=== PATIENT | male | born 1950 | race Caucasian/White ===

== ENCOUNTER → 2017-07-10 | Outpatient (CLI) | payer MEDICARE, OTHER ==
[~2017-07-10] MED LIST: /ONDA4TA PO; LOVE1INJ SC; OXYC-274 PO; PERC5TAB PO; SENO8.6T9 PO; SIMV40TA2 PO; VENTAER IN
--- NOTE | 2017-07-10 12:12 | REP ---
Chest two views HISTORY: Acute bronchitis Comparison: 06/12/2016 The lungs are hyperinflated. An increase in interstitial markings is present in the lungs. Bullae are present in the upper lobes. The heart is normal in size. The pulmonary vasculature is normal in appearance. The bony structure is intact. IMPRESSION: Findings consistent with COPD. Signed by Wes Corona MD 07/10/2017 12:04 P
== END ==
LOC: M WUC 11:42
PROVIDERS: ATTEND Nurse Practitioner Adult Health
DX: J20.9 Acute bronchitis, unspecified (principal)

== ENCOUNTER → 2017-11-11 | Outpatient (CLI) | payer MEDICARE, OTHER | LOC: M WUC 08:26 | DX: Z01.818 Encounter for other preprocedural examination (principal); J44.9 Chronic obstructive pulmonary disease, unspecified | CPT/HCPCS: 71046 ==

== ENCOUNTER 2017-11-24 05:48 | Day surgery (SDC) | payer MEDICARE, OTHER ==
[2017-11-24 06:33] LABS: POTASSIUM SERUM 4.2 MEQ/L (3.5-5.1)
[2017-11-24] MEDS: LR 1,000 ML IV ×2 (06:50)
[2017-11-24] MEDS ORDERED: ONDANSETRON 4MG/2ML VIAL (J2405) As Ordered ×2 (07:15)
[2017-11-24] MEDS ORDERED: ROCURONIUM BROMIDE 50 MG/5 ML VIAL As Ordered ×4 (07:15→08:17)
[2017-11-24] MEDS ORDERED: PROPOFOL 200 MG/20 ML VIAL As Ordered ×2 (07:15)
[2017-11-24] MEDS ORDERED: METOCLOPRAMIDE INJ 10MG/2ML VIAL (J2765) As Ordered ×2 (07:15)
[2017-11-24] MEDS ORDERED: LIDOCAINE 2% INJ 100 MG/5 ML SDV (FOR ANES.) As Ordered ×2 (07:15)
[2017-11-24] MEDS ORDERED: fentaNYL 100 MCG/2 ML INJECTION (J3010) As Ordered ×2 (07:15)
[2017-11-24] MEDS ORDERED: KETOROLAC 60 MG/2 ML VIAL (J1885) As Ordered ×2 (07:15)
[2017-11-24] MEDS ORDERED: MIDAZOLAM INJ 2 MG/2 ML VIAL (J2250) As Ordered ×2 (07:15)
[2017-11-24 07:17] LABS: ALBUMIN 3.1 GM/DL (3.2-5.2); ANION GAP 6 MEQ/L (8-16); BLOOD UREA NITROGEN 18 MG/DL (7-18); CALCIUM LEVEL 8.5 MG/DL (8.8-10.2); CARBON DIOXIDE LEVEL 29 MEQ/L (21-32); CHLORIDE LEVEL 109 MEQ/L (98-107); GLOMERULAR FILTRATION RATE > 60.0 (>49); GLUCOSE, FASTING 100 MG/DL (70-100); PHOSPHORUS LEVEL 2.8 MG/DL (2.5-4.9); SODIUM LEVEL 144 MEQ/L (136-145)
[2017-11-24] MEDS ORDERED: NEOSTIGMINE 10 MG/10 ML VIAL (J2710) As Ordered ×2 (08:54)
[2017-11-24] MEDS ORDERED: GLYCOPYRROLATE INJ 0.2 MG/ML 2 ML VIAL As Ordered ×2 (08:54)
[2017-11-24] MEDS: LIDOCAINE W/EPINEPHRINE 1% 20ML VIAL As Ordered ×2 (09:00)
[2017-11-24] MEDS ORDERED: ALBUTEROL 6.7GM INHALER **FOR ANES. CART/OMNICELL ONLY As Ordered ×2 (09:00)
[2017-11-24] MEDS: BUPIVACAINE HCL 0.25% 30 ML VIAL As Ordered ×2 (09:00)
[2017-11-24] MEDS ORDERED: dexameTHASONE 4 MG/ML 1ML VIAL (J1100) As Ordered ×2 (09:00)
[2017-11-24] MEDS ORDERED: fentaNYL 100 MCG/2 ML INJECTION (J3010) IV ×2 (09:30)
[2017-11-24] MEDS ORDERED: PERCOCET 5MG/325MG TAB PO ×2 (09:30)
[2017-11-24] MEDS ORDERED: LR 1,000 ML IV ×2 (09:30)
[2017-11-24] MEDS ORDERED: ONDANSETRON 4MG/2ML VIAL (J2405) IV ×2 (09:30)
[2017-11-24] MEDS: NORCO, ANEXSIA 5/325MG TABLET (HYDROcodone/ACETAMINOPHEN) PO ×2 (10:13)
== END 2017-11-24 11:46 | disposition home or self-care (01) ==
LOC: M SDC 05:48
DX: K40.90 Unilateral inguinal hernia, without obstruction or gangrene, not specified as recurrent (principal); K21.9 Gastro-esophageal reflux disease without esophagitis; J45.909 Unspecified asthma, uncomplicated; E78.5 Hyperlipidemia, unspecified; Z79.899 Other long term (current) drug therapy; Z87.891 Personal history of nicotine dependence; Z87.81 Personal history of (healed) traumatic fracture
CPT/HCPCS: 49650

== ENCOUNTER 2018-05-31 06:39 | Day surgery (SDC) | payer MEDICARE, OTHER ==
[2018-05-31] MEDS ORDERED: fentaNYL 100 MCG/2 ML INJECTION (J3010) As Ordered (07:01)
[2018-05-31] MEDS ORDERED: MIDAZOLAM INJ 2 MG/2 ML VIAL (J2250) As Ordered (07:02)
[2018-05-31] MEDS ORDERED: ONDANSETRON 4MG/2ML VIAL (J2405) As Ordered (07:02)
[2018-05-31] MEDS: PHENYLEPHRINE 2.5% OPHTH SOL 2ML OS (07:18)
[2018-05-31] MEDS: PROPARACAINE 0.5% OPHTH SOL 15ML OS (07:18)
[2018-05-31] MEDS: TROPICAMIDE 1% OPHTH SOLN 2ML OS (07:18)
[2018-05-31] MEDS: OFLOXACIN 0.3 % (OCUFLOX) OPTH SOL 5ML OS (07:18)
[2018-05-31] MEDS: BALANCED SALT IRRIGATION SOLUTION 500ML BAG (FOR OR EYE MACHINE) As Ordered (08:30)
[2018-05-31] MEDS: POVIDONE-IODINE 5% OPHTH PREP SOL 30ML As Ordered (08:30)
[2018-05-31] MEDS: LIDOCAINE 0.75%/EPINEPHRINE 0.025% IN BSS 1ML SYR INTRACAMERAL (OR ONLY) As Ordered (08:30)
[2018-05-31] MEDS: DUOVISC (0.50ML VISCOAT/0.55ML PROVISC) OPHTH KIT As Ordered (08:31)
[2018-05-31] MEDS: CEFUROXIME 1MG/0.1ML INTRACAMERAL INJ As Ordered ×2 (08:31)
== END 2018-05-31 09:28 | disposition home or self-care (01) ==
LOC: M SDC 06:39
DX: H25.12 Age-related nuclear cataract, left eye (principal); K21.9 Gastro-esophageal reflux disease without esophagitis; J44.9 Chronic obstructive pulmonary disease, unspecified; Z79.899 Other long term (current) drug therapy; Z79.51 Long term (current) use of inhaled steroids
CPT/HCPCS: 66984

== ENCOUNTER 2018-06-07 12:11 | Day surgery (SDC) | payer MEDICARE, OTHER ==
[2018-06-07] MEDS: PROPARACAINE 0.5% OPHTH SOL 15ML OD (13:09)
[2018-06-07] MEDS: TROPICAMIDE 1% OPHTH SOLN 2ML OD (13:09)
[2018-06-07] MEDS: OFLOXACIN 0.3 % (OCUFLOX) OPTH SOL 5ML OD (13:09)
[2018-06-07] MEDS: PHENYLEPHRINE 2.5% OPHTH SOL 2ML OD (13:10)
[2018-06-07] MEDS: POVIDONE-IODINE 5% OPHTH PREP SOL 30ML As Ordered (14:40)
[2018-06-07] MEDS: LIDOCAINE 0.75%/EPINEPHRINE 0.025% IN BSS 1ML SYR INTRACAMERAL (OR ONLY) As Ordered (14:43)
[2018-06-07] MEDS: DUOVISC (0.50ML VISCOAT/0.55ML PROVISC) OPHTH KIT As Ordered (14:43)
[2018-06-07] MEDS: BALANCED SALT IRRIGATION SOLUTION 500ML BAG (FOR OR EYE MACHINE) As Ordered (14:43)
[2018-06-07] MEDS: CEFUROXIME 1MG/0.1ML INTRACAMERAL INJ As Ordered (14:44)
[2018-06-07] MEDS ORDERED: fentaNYL 100 MCG/2 ML INJECTION (J3010) As Ordered (14:50)
[2018-06-07] MEDS ORDERED: MIDAZOLAM INJ 2 MG/2 ML VIAL (J2250) As Ordered (14:50)
== END 2018-06-07 15:30 | disposition home or self-care (01) ==
LOC: M SDC 12:11
DX: H25.11 Age-related nuclear cataract, right eye (principal); K21.9 Gastro-esophageal reflux disease without esophagitis; M54.9 Dorsalgia, unspecified; J45.909 Unspecified asthma, uncomplicated; J44.9 Chronic obstructive pulmonary disease, unspecified; E78.5 Hyperlipidemia, unspecified; J30.9 Allergic rhinitis, unspecified; R06.09 Other forms of dyspnea; Z79.899 Other long term (current) drug therapy; Z87.891 Personal history of nicotine dependence
CPT/HCPCS: 66984

== ENCOUNTER → 2018-07-11 | Outpatient (REF) | payer MEDICARE, OTHER ==
[2018-07-17 00:21] LABS: A1A FOR PHENOTYPE 158 mg/dL (90-200)
== END ==
LOC: M LAB REF 17:08
DX: J44.9 Chronic obstructive pulmonary disease, unspecified (principal)
CPT/HCPCS: 82103

== ENCOUNTER → 2018-07-30 | Outpatient (CLI) | payer MEDICARE, OTHER | LOC: M RAD 07:12 | DX: J44.9 Chronic obstructive pulmonary disease, unspecified (principal); J84.10 Pulmonary fibrosis, unspecified; K76.89 Other specified diseases of liver | CPT/HCPCS: 71250 ==

== ENCOUNTER → 2020-02-26 | Outpatient (CLI) | payer MEDICARE, OTHER ==
[~2020-02-26] MED LIST changes: -/ONDA4TA PO; +APPL188C PO; +ECHI125T PO; +GLUC1CAP9 PO; +IPRA0.00 INH; +MONT10TA4 PO; +ONDA-1 PO; +PRED10PA PO; +SPIR1CAP INH; +SYMB16INH INH
--- NOTE | 2020-02-26 21:58 | ECGEPIP ---
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 Electronically Signed on 02-26-2020 21:57:58 EDT by Anika Tsang
== END ==
LOC: M EKG 08:53
PROVIDERS: ATTEND Anesthesiology
DX: Z01.818 Encounter for other preprocedural examination (principal); K21.9 Gastro-esophageal reflux disease without esophagitis

== ENCOUNTER → 2020-02-28 | Outpatient (CLI) | payer MEDICARE, OTHER | LOC: M LABSMTC 09:45 | PROVIDERS: ATTEND Anesthesiology | DX: Z01.818 Encounter for other preprocedural examination (principal); Z11.59 Encounter for screening for other viral diseases | CPT/HCPCS: C9803; U0003 ==

== ENCOUNTER 2020-03-02 09:46 | Day surgery (SDC) | payer MEDICARE, OTHER ==
[~2020-03-02] VITALS: Ht 193 cm; Wt 93.4 kg
[~2020-03-02 09:46] MED LIST changes: +LR 1,000 ML IV ONE; +ceFAZolin SOD 2 GM in IV 1 EA IV ONE
[2020-03-02] MEDS ORDERED: LIDOCAINE 2% 100MG/5ML SDV (FOR ANES.) As Ordered ONE (10:21)
[2020-03-02] MEDS ORDERED: ROCURONIUM BROMIDE 50 MG/5 ML VIAL As Ordered ONE (10:21)
[2020-03-02] MEDS ORDERED: fentaNYL 250 MCG/5 ML INJECTION (J3010) As Ordered ONE (10:21)
[2020-03-02] MEDS ORDERED: propofoL 200 MG/20 ML VIAL As Ordered ONE (10:21)
[2020-03-02] MEDS ORDERED: SUCCINYLCHOLINE 100 MG/5 ML SYRINGE (J0330) As Ordered ONE (10:21)
[2020-03-02] MEDS ORDERED: MIDAZOLAM INJ 2MG/2ML VIAL (J2250 PER 1MG) As Ordered ONE (10:22)
[2020-03-02] MEDS ORDERED: BUPIVACAINE/EPIN 0.25% 30 ML VIAL As Ordered ONE (12:19)
[2020-03-02] MEDS ORDERED: ONDANSETRON 4MG/2ML VIAL As Ordered ONE (13:40)
[2020-03-02] MEDS ORDERED: ACETAMINOPHEN 1000MG 100ML IV BTL (OFIRMEV) (J0131 PER 10MG) As Ordered ONE (13:40)
[2020-03-02] MEDS ORDERED: dexameTHASONE 4 MG/ML 1ML VIAL (J1100 PER 1MG) As Ordered ONE (13:40)
[2020-03-02] MEDS ORDERED: KETOROLAC 60 MG/2 ML VIAL As Ordered ONE (13:40)
[2020-03-02] MEDS ORDERED: SUGAMMADEX SODIUM 500 MG/5 ML VIAL (BRIDION) As Ordered ONE (13:49)
[2020-03-02] MEDS ORDERED: ONDANSETRON 4MG/2ML VIAL IV PRN (14:45)
[2020-03-02] MEDS ORDERED: NORCO, ANEXSIA 5/325MG TABLET (HYDROcodone/ACETAMINOPHEN) PO PRN (14:45)
[2020-03-02] MEDS ORDERED: oxyCODONE 5MG TAB PO PRN (14:45)
[2020-03-02] MEDS ORDERED: LR 1,000 ML IV SCH (14:45)
[2020-03-02] MEDS ORDERED: fentaNYL 100 MCG/2 ML INJECTION (J3010) IV PRN (14:45)
[2020-03-02 16:00] VITALS: BP 154/74
== END 2020-03-02 16:23 | disposition home or self-care (01) ==
LOC: M SDC 09:46
PROVIDERS: ATTEND Surgery
DX: K40.91 Unilateral inguinal hernia, without obstruction or gangrene, recurrent (principal); E78.00 Pure hypercholesterolemia, unspecified; E78.49 Other hyperlipidemia; J45.909 Unspecified asthma, uncomplicated; K21.9 Gastro-esophageal reflux disease without esophagitis; Z79.899 Other long term (current) drug therapy; Z79.51 Long term (current) use of inhaled steroids; Z79.52 Long term (current) use of systemic steroids
CPT/HCPCS: 49650; C1781; J0131; J0330; J0690; J1100; J1885; J2250; J2405; J3010

== ENCOUNTER → 2021-09-16 | Outpatient (CLI) | payer MEDICARE, OTHER ==
[~2021-09-16] MED LIST changes: -LR 1,000 ML IV ONE; +MONT10TA10 PO; -MONT10TA4 PO; -ceFAZolin SOD 2 GM in IV 1 EA IV ONE
--- NOTE | 2021-09-16 09:40 | REP ---
INDICATION: PREPROCEDURAL EXAMINATION COMPARISON: 11/11/2017 TECHNIQUE: PA and lateral. FINDINGS: Mediastinum and cardiac silhouette are normal. 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 No acute consolidation. No effusion. No pneumothorax. Skeletal structures demonstrate osteopenia and degenerative changes. IMPRESSION: No acute cardiopulmonary process. <Electronically signed by Toño Melvin > 09/16/21 0937
== END ==
LOC: M WUC 08:09
PROVIDERS: ATTEND Nurse Practitioner Family
DX: Z01.811 Encounter for preprocedural respiratory examination (principal)

== ENCOUNTER → 2023-02-20 | Outpatient (CLI) | payer MEDICARE, OTHER ==
[~2023-02-20] MED LIST changes: +ALBU8.5H INH; +FERR325T3 PO; -MONT10TA10 PO; +MONT10TA97 PO
== END ==
LOC: M WUC 13:23
PROVIDERS: ATTEND Internal Medicine Pulmonary Disease
DX: J45.40 Moderate persistent asthma, uncomplicated (principal); J43.1 Panlobular emphysema

== ENCOUNTER 2023-05-25 11:56 | Inpatient (IN) | payer MEDICARE, OTHER ==
[~2023-05-25] VITALS: Ht 182.9 cm; Wt 62.5 kg
[2023-05-25 13:15] LABS: HEMATOCRIT 38.3 % (42.0-52.0); MEAN CORPUSCULAR HEMOGLOBIN 26.5 pg (27.0-33.0); MEAN CORPUSCULAR HGB CONC 31.3 g/dl (32.0-36.5); MEAN CORPUSCULAR VOLUME 84.7 fl (80.0-96.0); PLATELET COUNT, AUTOMATED 296 10^3/uL (150-450); RED BLOOD COUNT 4.52 10^6/uL (4.30-6.10)
[2023-05-25] MEDS ORDERED: CEFEPIME HCL 2 GM in D5W MINI-BAG PLUS 50 ML IV ONE (13:15)
[2023-05-25 13:18] LABS: WHITE BLOOD COUNT 42.1 10^3/uL (4.0-10.0)
[2023-05-25 13:28] LABS: ABG BASE EXCESS -6.7 (-2.0-2.0); ABG HCO3 18.3 MMOL/L (22.0-26.0); ABG O2 SATURATION 97.1 % (95.0-99.0); ABG PARTIAL PRESSURE CO2 34.8 mmHg (35.0-45.0); ABG PARTIAL PRESSURE O2 95.1 mmHg (75.0-100.0); ABG TOTAL CO2 19.4 MMOL/L (23.0-31.0); ABG pH (ARTERIAL) 7.339 UNITS (7.350-7.450)
[2023-05-25 13:41] LABS: ATYPICAL LYMPH 4 % (0-5); LYMPHOCYTES 1 % (16-44); MONOCYTES 6 % (0-5); NEUTROPHILS 88 % (28-66); PLATELET ESTIMATE NORMAL (NORMAL)
[2023-05-25 13:45] LABS: BILIRUBIN,DIRECT 0.4 MG/DL (<0.4); BILIRUBIN,TOTAL 0.7 MG/DL (0.3-1.2); CALCIUM LEVEL 8.9 MG/DL (8.3-10.6); CK-MB VALUE MASS 3.4 NG/ML (<3.6); CREATININE FOR GFR 2.56 MG/DL (0.70-1.30); GLOMERULAR FILTRATION RATE 26.4 (>42); POTASSIUM SERUM 4.4 MMOL/L (3.5-5.1); TOTAL PROTEIN 6.4 G/DL (5.7-8.2)
[2023-05-25 13:48] LABS: THYROID STIMULATING HORMONE 0.967 uIU/ML (0.55-4.78)
[2023-05-25 13:55] LABS: MB/CK RELATIVE INDEX 2.65 (< OR =4)
[2023-05-25 13:57] LABS: INR 1.46; PROTHROMBIN TIME 17.3 SECONDS (12.5-14.5)
[2023-05-25] MEDS ORDERED: CEFD300C41 PO (14:57)
[2023-05-25] MEDS ORDERED: AZIT500T5 PO (14:57)
[2023-05-25] MEDS ORDERED: MED REC IN PROGRESS XX SCH (15:00)
[2023-05-25] MEDS ORDERED: Prednisone (15:06)
[2023-05-25] MEDS ORDERED: PRED10TA2 PO (15:07)
[2023-05-25] MEDS ORDERED: HOME MED LIST COMPLETE! XX SCH (15:10)
[2023-05-25] MEDS ORDERED: IPRATROPIUM 0.5MG/ALBUTEROL 2.5MG INH SOL UD 3ML (DUONEB) NEB PRN (19:25)
[2023-05-25 19:45] VITALS: O2SAT 93
[2023-05-25] MEDS: IPRATROPIUM 0.5MG/ALBUTEROL 2.5MG INH SOL UD 3ML (DUONEB) NEB SCH ×2 (19:48→23:15)
[2023-05-25 20:00] VITALS: BP 136/71; TEMP 98.4; O2SAT 90
[2023-05-25] MEDS: CHLORHEXIDINE GLUCONATE 0.12 % 15ML UDC (PERIDEX ORAL RINSE) MT SCH (20:30)
[2023-05-25 21:00] VITALS: BP 123/57; O2SAT 93
[2023-05-25 22:00] VITALS: BP 125/60; O2SAT 98
[2023-05-25 23:00] VITALS: BP 121/59; O2SAT 100
[2023-05-25 23:03] LABS: BASO % 0.1 % (0.0-1.0); HEMATOCRIT 33.1 % (42.0-52.0); HEMOGLOBIN 10.6 g/dl (13.5-17.5); LYMPH # 0.5 10^3/uL (1.5-5.0); LYMPH % 1.7 % (24.0-44.0); MEAN CORPUSCULAR HEMOGLOBIN 26.8 pg (27.0-33.0); MEAN CORPUSCULAR VOLUME 83.8 fl (80.0-96.0); MONO % 8.8 % (2.0-8.0); NEUTROPHILS # 27.5 10^3/uL (1.5-8.5); NEUTROPHILS % 87.6 % (36.0-66.0); PLATELET COUNT, AUTOMATED 250 10^3/uL (150-450); RED BLOOD COUNT 3.95 10^6/uL (4.30-6.10)
[2023-05-26] VITALS (11 sets, daily range): BP systolic 103–153; BP diastolic 56–70; TEMP 97.9–100; O2SAT 91–99
[2023-05-26 00:07] LABS: WHITE BLOOD COUNT 31.5 10^3/uL (4.0-10.0)
[2023-05-26 00:08] LABS: MONO # 2.8 10^3/uL (0.0-0.8)
[2023-05-26] MEDS: IPRATROPIUM 0.5MG/ALBUTEROL 2.5MG INH SOL UD 3ML (DUONEB) NEB SCH ×6 (03:12→23:30)
[2023-05-26 05:10] LABS: CALCIUM LEVEL 8.4 MG/DL (8.3-10.6); CREATININE FOR GFR 1.83 MG/DL (0.70-1.30); GLOMERULAR FILTRATION RATE 38.8 (>42); PHOSPHORUS LEVEL 5.2 MG/DL (2.4-5.1); POTASSIUM SERUM 4.3 MMOL/L (3.5-5.1)
[2023-05-26] MEDS: TIOTROPIUM INHALER/CAPSULE (SPIRIVA) INH SCH (07:32)
[2023-05-26] MEDS: ENOXAPARIN 30MG/0.3ML SYRINGE (J1650 PER 10MG) SC SCH (08:05)
[2023-05-26] MEDS: MONTELUKAST 10 MG TAB PO SCH (08:05)
[2023-05-26] MEDS: CHLORHEXIDINE GLUCONATE 0.12 % 15ML UDC (PERIDEX ORAL RINSE) MT SCH ×2 (08:05→20:46)
[2023-05-26] MEDS ORDERED: AZITHROMYCIN 250MG TABLET PO ONE (09:00)
[2023-05-26 09:48] LABS: BASO % 0.1 % (0.0-1.0); HEMATOCRIT 35.6 % (42.0-52.0); HEMOGLOBIN 11.5 g/dl (13.5-17.5); LYMPH # 0.5 10^3/uL (1.5-5.0); LYMPH % 1.8 % (24.0-44.0); MEAN CORPUSCULAR HEMOGLOBIN 27.3 pg (27.0-33.0); MEAN CORPUSCULAR HGB CONC 32.3 g/dl (32.0-36.5); MEAN CORPUSCULAR VOLUME 84.4 fl (80.0-96.0); MONO % 8.8 % (2.0-8.0); NEUTROPHILS # 23.9 10^3/uL (1.5-8.5); NEUTROPHILS % 87.7 % (36.0-66.0); PLATELET COUNT, AUTOMATED 255 10^3/uL (150-450); RED BLOOD COUNT 4.22 10^6/uL (4.30-6.10); WHITE BLOOD COUNT 27.2 10^3/uL (4.0-10.0)
[2023-05-26 10:06] LABS: MONO # 2.4 10^3/uL (0.0-0.8)
[2023-05-26] MEDS: cefTRIAXone SOD 1 GM in D5W MINI-BAG PLUS 50 ML IV SCH (12:42)
[2023-05-26 14:46] LABS: PROCALCITONIN 37.29 ng/ml
[2023-05-26] MEDS: SYMBICORT 160/4.5MCG INHALER 6GM INH SCH (19:44)
[2023-05-26] MEDS: TAMSULOSIN 0.4 MG CAP PO SCH (20:46)
[2023-05-27] MEDS: IPRATROPIUM 0.5MG/ALBUTEROL 2.5MG INH SOL UD 3ML (DUONEB) NEB SCH ×6 (03:48→23:20)
[2023-05-27 04:00] VITALS: BP 120/63; TEMP 99.1; O2SAT 91
[2023-05-27 04:19] LABS: HEMATOCRIT 31.6 % (42.0-52.0); HEMOGLOBIN 10.1 g/dl (13.5-17.5); MEAN CORPUSCULAR HEMOGLOBIN 26.9 pg (27.0-33.0); PLATELET COUNT, AUTOMATED 236 10^3/uL (150-450); RED BLOOD COUNT 3.76 10^6/uL (4.30-6.10); WHITE BLOOD COUNT 20.1 10^3/uL (4.0-10.0)
[2023-05-27 05:21] LABS: ALBUMIN 2.1 G/DL (3.2-5.2); ALKALINE PHOSPHATASE 148 U/L (46-116); ALT/SGPT 54 U/L (7.0-40); AST/SGOT 36 U/L (<34); BILIRUBIN,TOTAL 0.5 MG/DL (0.3-1.2); BLOOD UREA NITROGEN 63 MG/DL (9-23); CALCIUM LEVEL 8.6 MG/DL (8.3-10.6); CARBON DIOXIDE LEVEL 28 MMOL/L (20-31); CHLORIDE LEVEL 106 MMOL/L (98-107); CREATININE FOR GFR 1.02 MG/DL (0.70-1.30); GLOMERULAR FILTRATION RATE > 60.0 (>42); GLUCOSE, FASTING 115 MG/DL (74-106); SODIUM LEVEL 140 MMOL/L (136-145); TOTAL PROTEIN 4.8 G/DL (5.7-8.2)
[2023-05-27 07:44] VITALS: BP 104/60; TEMP 98.5; O2SAT 93
[2023-05-27] MEDS: SYMBICORT 160/4.5MCG INHALER 6GM INH SCH ×2 (07:52→19:15)
[2023-05-27] MEDS: TIOTROPIUM INHALER/CAPSULE (SPIRIVA) INH SCH (07:53)
[2023-05-27] MEDS: AZITHROMYCIN 250MG TABLET PO SCH (08:16)
[2023-05-27] MEDS: MONTELUKAST 10 MG TAB PO SCH (08:16)
[2023-05-27] MEDS: predniSONE 10MG TAB PO SCH (08:16)
[2023-05-27] MEDS: CHLORHEXIDINE GLUCONATE 0.12 % 15ML UDC (PERIDEX ORAL RINSE) MT SCH ×2 (08:16→20:05)
[2023-05-27] MEDS: ENOXAPARIN 30MG/0.3ML SYRINGE (J1650 PER 10MG) SC SCH (08:16)
[2023-05-27] MEDS: cefTRIAXone SOD 1 GM in D5W MINI-BAG PLUS 50 ML IV SCH (12:10)
[2023-05-27 15:16] VITALS: BP 118/66; TEMP 98.1; O2SAT 95
[2023-05-27 20:00] VITALS: BP 132/70; TEMP 98.8; O2SAT 94
[2023-05-27] MEDS: TAMSULOSIN 0.4 MG CAP PO SCH (20:09)
[2023-05-28] MEDS: IPRATROPIUM 0.5MG/ALBUTEROL 2.5MG INH SOL UD 3ML (DUONEB) NEB SCH ×5 (03:20→21:29)
[2023-05-28 04:00] VITALS: BP 137/62; TEMP 98.7; O2SAT 95
[2023-05-28 04:35] LABS: HEMATOCRIT 33.8 % (42.0-52.0); HEMOGLOBIN 10.7 g/dl (13.5-17.5); MEAN CORPUSCULAR HGB CONC 31.7 g/dl (32.0-36.5); MEAN CORPUSCULAR VOLUME 85.1 fl (80.0-96.0); PLATELET COUNT, AUTOMATED 235 10^3/uL (150-450); RED BLOOD COUNT 3.97 10^6/uL (4.30-6.10); WHITE BLOOD COUNT 18.2 10^3/uL (4.0-10.0)
[2023-05-28 05:09] LABS: ALBUMIN 2.2 G/DL (3.2-5.2); ALKALINE PHOSPHATASE 157 U/L (46-116); ALT/SGPT 71 U/L (7.0-40); AST/SGOT 44 U/L (<34); BILIRUBIN,TOTAL 0.5 MG/DL (0.3-1.2); BLOOD UREA NITROGEN 52 MG/DL (9-23); CALCIUM LEVEL 8.5 MG/DL (8.3-10.6); CARBON DIOXIDE LEVEL 30 MMOL/L (20-31); CHLORIDE LEVEL 105 MMOL/L (98-107); CREATININE FOR GFR 0.82 MG/DL (0.70-1.30); GLOMERULAR FILTRATION RATE > 60.0 (>42); GLUCOSE, FASTING 119 MG/DL (74-106); POTASSIUM SERUM 4.2 MMOL/L (3.5-5.1); SODIUM LEVEL 140 MMOL/L (136-145); TOTAL PROTEIN 5.1 G/DL (5.7-8.2)
[2023-05-28] MEDS: TIOTROPIUM INHALER/CAPSULE (SPIRIVA) INH SCH (07:37)
[2023-05-28] MEDS: SYMBICORT 160/4.5MCG INHALER 6GM INH SCH ×2 (07:38→21:30)
[2023-05-28] MEDS: MONTELUKAST 10 MG TAB PO SCH (08:05)
[2023-05-28] MEDS: CHLORHEXIDINE GLUCONATE 0.12 % 15ML UDC (PERIDEX ORAL RINSE) MT SCH ×2 (08:05→20:18)
[2023-05-28] MEDS: AZITHROMYCIN 250MG TABLET PO SCH (08:05)
[2023-05-28] MEDS: ENOXAPARIN 30MG/0.3ML SYRINGE (J1650 PER 10MG) SC SCH (08:05)
[2023-05-28 08:13] VITALS: BP 131/66; TEMP 98.3; O2SAT 96
[2023-05-28] MEDS: cefTRIAXone SOD 1 GM in D5W MINI-BAG PLUS 50 ML IV SCH (11:54)
[2023-05-28 15:33] VITALS: BP 117/59; TEMP 98.9; O2SAT 97
[2023-05-28 16:30] VITALS: BP 135/65; TEMP 97.7; O2SAT 97
[2023-05-28] MEDS: TAMSULOSIN 0.4 MG CAP PO SCH (20:18)
[2023-05-28 20:23] VITALS: BP 133/66; TEMP 97.7; O2SAT 98
[2023-05-29] MEDS: IPRATROPIUM 0.5MG/ALBUTEROL 2.5MG INH SOL UD 3ML (DUONEB) NEB SCH ×7 (00:41→21:38)
[2023-05-29 05:38] VITALS: BP 129/66; TEMP 97.3; O2SAT 93
[2023-05-29 06:17] LABS: HEMOGLOBIN 10.4 g/dl (13.5-17.5); MEAN CORPUSCULAR HEMOGLOBIN 26.9 pg (27.0-33.0); MEAN CORPUSCULAR HGB CONC 31.5 g/dl (32.0-36.5); MEAN CORPUSCULAR VOLUME 85.3 fl (80.0-96.0); PLATELET COUNT, AUTOMATED 227 10^3/uL (150-450); RED BLOOD COUNT 3.87 10^6/uL (4.30-6.10); WHITE BLOOD COUNT 12.2 10^3/uL (4.0-10.0)
[2023-05-29 06:39] LABS: ALBUMIN 2.1 G/DL (3.2-5.2); ALKALINE PHOSPHATASE 139 U/L (46-116); ALT/SGPT 83 U/L (7.0-40); AST/SGOT 46 U/L (<34); BILIRUBIN,TOTAL 0.4 MG/DL (0.3-1.2); BLOOD UREA NITROGEN 36 MG/DL (9-23); CALCIUM LEVEL 7.8 MG/DL (8.3-10.6); CARBON DIOXIDE LEVEL 29 MMOL/L (20-31); CHLORIDE LEVEL 106 MMOL/L (98-107); CREATININE FOR GFR 0.73 MG/DL (0.70-1.30); GLOMERULAR FILTRATION RATE > 60.0 (>42); GLUCOSE, FASTING 102 MG/DL (74-106); SODIUM LEVEL 143 MMOL/L (136-145); TOTAL PROTEIN 4.6 G/DL (5.7-8.2)
[2023-05-29] MEDS: SYMBICORT 160/4.5MCG INHALER 6GM INH SCH ×2 (07:31→20:00)
[2023-05-29] MEDS: TIOTROPIUM INHALER/CAPSULE (SPIRIVA) INH SCH (07:32)
[2023-05-29] MEDS: MONTELUKAST 10 MG TAB PO SCH (09:00)
[2023-05-29] MEDS: CHLORHEXIDINE GLUCONATE 0.12 % 15ML UDC (PERIDEX ORAL RINSE) MT SCH ×2 (09:09→20:07)
[2023-05-29] MEDS: AZITHROMYCIN 250MG TABLET PO SCH (09:09)
[2023-05-29] MEDS: predniSONE 10MG TAB PO SCH (09:10)
[2023-05-29] MEDS: ENOXAPARIN 30MG/0.3ML SYRINGE (J1650 PER 10MG) SC SCH (09:10)
[2023-05-29] MEDS: cefTRIAXone SOD 1 GM in D5W MINI-BAG PLUS 50 ML IV SCH (12:18)
[2023-05-29 14:00] VITALS: BP 128/83; TEMP 98.1; O2SAT 98
[2023-05-29] MEDS: TAMSULOSIN 0.4 MG CAP PO SCH (20:07)
[2023-05-29 21:23] VITALS: BP 125/83; TEMP 97.5; O2SAT 95
[2023-05-30] MEDS: IPRATROPIUM 0.5MG/ALBUTEROL 2.5MG INH SOL UD 3ML (DUONEB) NEB SCH ×4 (02:04→15:59)
[2023-05-30 06:04] VITALS: BP 118/71; TEMP 97.3; O2SAT 97
[2023-05-30 06:17] LABS: HEMATOCRIT 34.1 % (42.0-52.0); HEMOGLOBIN 10.8 g/dl (13.5-17.5); MEAN CORPUSCULAR HEMOGLOBIN 27.3 pg (27.0-33.0); MEAN CORPUSCULAR HGB CONC 31.7 g/dl (32.0-36.5); MEAN CORPUSCULAR VOLUME 86.3 fl (80.0-96.0); PLATELET COUNT, AUTOMATED 294 10^3/uL (150-450); RED BLOOD COUNT 3.95 10^6/uL (4.30-6.10); WHITE BLOOD COUNT 14.6 10^3/uL (4.0-10.0)
[2023-05-30 06:49] LABS: ALBUMIN 2.2 G/DL (3.2-5.2); ALKALINE PHOSPHATASE 142 U/L (46-116); ALT/SGPT 89 U/L (7.0-40); AST/SGOT 37 U/L (<34); BILIRUBIN,TOTAL 0.5 MG/DL (0.3-1.2); BLOOD UREA NITROGEN 35 MG/DL (9-23); CALCIUM LEVEL 8.1 MG/DL (8.3-10.6); CARBON DIOXIDE LEVEL 32 MMOL/L (20-31); CHLORIDE LEVEL 102 MMOL/L (98-107); CREATININE FOR GFR 0.79 MG/DL (0.70-1.30); GLOMERULAR FILTRATION RATE > 60.0 (>42); GLUCOSE, FASTING 96 MG/DL (74-106); SODIUM LEVEL 138 MMOL/L (136-145)
[2023-05-30] MEDS: TIOTROPIUM INHALER/CAPSULE (SPIRIVA) INH SCH (07:27)
[2023-05-30] MEDS: SYMBICORT 160/4.5MCG INHALER 6GM INH SCH (07:27)
[2023-05-30] MEDS: AZITHROMYCIN 250MG TABLET PO SCH (08:53)
[2023-05-30] MEDS: ENOXAPARIN 30MG/0.3ML SYRINGE (J1650 PER 10MG) SC SCH (08:53)
[2023-05-30] MEDS: CHLORHEXIDINE GLUCONATE 0.12 % 15ML UDC (PERIDEX ORAL RINSE) MT SCH (08:53)
[2023-05-30] MEDS: TAMSULOSIN 0.4 MG CAP PO SCH (08:53)
[2023-05-30] MEDS: MONTELUKAST 10 MG TAB PO SCH (08:53)
[2023-05-30] MEDS ORDERED: FLUCONAZOLE 100 MG TAB PO SCH (09:00)
[2023-05-30] MEDS ORDERED: CEFDINIR 300 MG CAP (OMNICEF) PO SCH (09:00)
[2023-05-30] MEDS ORDERED: FUROSEMIDE 40MG/4ML VIAL IV ONE (13:00)
[2023-05-30] MEDS ORDERED: FLOM0.4C39 PO (17:13)
[2023-05-30] MEDS ORDERED: FLUC100T3 PO (17:13)
[2023-05-30] MEDS ORDERED: CEFD300C41 PO (17:13)
== END 2023-05-30 18:06 | disposition home health service (06) | DRG 871 ==
LOC: M ED 11:56 → M ED INP 17:26 → M ICU 20:00 → M MSPAV 05-28 16:25
PROVIDERS: ADMIT Internal Medicine Pulmonary Disease; ATTEND Internal Medicine Nephrology
DX: A41.9 Sepsis, unspecified organism (principal); J96.01 Acute respiratory failure with hypoxia; J15.9 Unspecified bacterial pneumonia; N17.9 Acute kidney failure, unspecified; N39.0 Urinary tract infection, site not specified; J43.2 Centrilobular emphysema; M54.16 Radiculopathy, lumbar region; E87.5 Hyperkalemia; B96.20 Unspecified Escherichia coli [E. coli] as the cause of diseases classified elsewhere; R33.9 Retention of urine, unspecified; R91.8 Other nonspecific abnormal finding of lung field; L89.152 Pressure ulcer of sacral region, stage 2; E78.00 Pure hypercholesterolemia, unspecified; I10 Essential (primary) hypertension; N32.0 Bladder-neck obstruction; R74.01 Elevation of levels of liver transaminase levels; I73.9 Peripheral vascular disease, unspecified; N40.1 Benign prostatic hyperplasia with lower urinary tract symptoms; K57.90 Diverticulosis of intestine, part unspecified, without perforation or abscess without bleeding; Z98.41 Cataract extraction status, right eye; Z98.42 Cataract extraction status, left eye; Z87.891 Personal history of nicotine dependence; Z79.52 Long term (current) use of systemic steroids; Z79.899 Other long term (current) drug therapy; Z96.641 Presence of right artificial hip joint

== ENCOUNTER → 2023-06-13 | Outpatient (REF) | payer MEDICARE, OTHER ==
[~2023-06-13] MED LIST changes: +AZIT500T5 PO; +CEFD300C41 PO; +FLOM0.4C39 PO; +FLUC100T3 PO; +PRED10TA2 PO; +Prednisone
[2023-06-13 16:19] LABS: BASO % 0.2 % (0.0-1.0); EOS % 0.2 % (0.0-3.0); HEMOGLOBIN 9.8 g/dl (13.5-17.5); LYMPH # 0.5 10^3/uL (1.5-5.0); LYMPH % 4.5 % (24.0-44.0); MEAN CORPUSCULAR HEMOGLOBIN 27.4 pg (27.0-33.0); MEAN CORPUSCULAR HGB CONC 30.6 g/dl (32.0-36.5); MEAN CORPUSCULAR VOLUME 89.4 fl (80.0-96.0); MONO # 0.9 10^3/uL (0.0-0.8); MONO % 8.3 % (2.0-8.0); NEUTROPHILS % 86.4 % (36.0-66.0); PLATELET COUNT, AUTOMATED 325 10^3/uL (150-450); RED BLOOD COUNT 3.58 10^6/uL (4.30-6.10); WHITE BLOOD COUNT 10.4 10^3/uL (4.0-10.0)
[2023-06-13 16:26] LABS: ALBUMIN 2.7 G/DL (3.2-5.2); ALKALINE PHOSPHATASE 125 U/L (46-116); ALT/SGPT 27 U/L (7.0-40); AST/SGOT 11 U/L (<34); BILIRUBIN,TOTAL 0.6 MG/DL (0.3-1.2); BLOOD UREA NITROGEN 21 MG/DL (9-23); CALCIUM LEVEL 7.9 MG/DL (8.3-10.6); CARBON DIOXIDE LEVEL 32 MMOL/L (20-31); CHLORIDE LEVEL 103 MMOL/L (98-107); GLOMERULAR FILTRATION RATE > 60.0 (>42); GLUCOSE, FASTING 91 MG/DL (74-106); POTASSIUM SERUM 4.1 MMOL/L (3.5-5.1); SODIUM LEVEL 140 MMOL/L (136-145); TOTAL PROTEIN 5.3 G/DL (5.7-8.2)
== END ==
LOC: M SHH 15:24
PROVIDERS: ATTEND Registered Nurse
DX: J18.9 Pneumonia, unspecified organism (principal); A41.9 Sepsis, unspecified organism

== ENCOUNTER → 2023-06-20 | Outpatient (REF) | payer MEDICARE, OTHER ==
[2023-06-20 13:12] LABS: HEMATOCRIT 33.9 % (42.0-52.0); HEMOGLOBIN 10.3 g/dl (13.5-17.5); MEAN CORPUSCULAR HEMOGLOBIN 27.2 pg (27.0-33.0); MEAN CORPUSCULAR HGB CONC 30.4 g/dl (32.0-36.5); MEAN CORPUSCULAR VOLUME 89.7 fl (80.0-96.0); PLATELET COUNT, AUTOMATED 323 10^3/uL (150-450); RED BLOOD COUNT 3.78 10^6/uL (4.30-6.10); WHITE BLOOD COUNT 8.9 10^3/uL (4.0-10.0)
[2023-06-20 13:24] LABS: FERRITIN 110.4 NG/ML (10.5-307.3)
== END ==
LOC: M SHH 11:54
PROVIDERS: ATTEND Registered Nurse
DX: D64.9 Anemia, unspecified (principal)

== ENCOUNTER → 2023-07-12 | Outpatient (REF) | payer MEDICARE, OTHER ==
[~2023-07-12] MED LIST changes: -CEFD300C41 PO; +CEFD300C42 PO
[2023-07-12 12:36] LABS: HEMATOCRIT 35.5 % (42.0-52.0); HEMOGLOBIN 10.6 g/dl (13.5-17.5); MEAN CORPUSCULAR HEMOGLOBIN 26.6 pg (27.0-33.0); MEAN CORPUSCULAR HGB CONC 29.9 g/dl (32.0-36.5); MEAN CORPUSCULAR VOLUME 89.2 fl (80.0-96.0); PLATELET COUNT, AUTOMATED 339 10^3/uL (150-450); RED BLOOD COUNT 3.98 10^6/uL (4.30-6.10); WHITE BLOOD COUNT 8.6 10^3/uL (4.0-10.0)
[2023-07-12 13:05] LABS: PERCENT SATURATION 4.9 % (19.7-50.0)
[2023-07-12 13:07] LABS: FERRITIN 92.6 NG/ML (10.5-307.3)
== END ==
LOC: M SHH 12:11
PROVIDERS: ATTEND Registered Nurse
DX: D50.9 Iron deficiency anemia, unspecified (principal)

== ENCOUNTER 2023-07-19 01:10 | Emergency (ER) | payer MEDICARE, OTHER ==
[~2023-07-19] VITALS: Ht 193 cm; Wt 70.7 kg
[2023-07-19 01:11] VITALS: BP 173/82; TEMP 96.6; O2SAT 95
== END 2023-07-19 02:27 | disposition home or self-care (01) ==
LOC: M ED 01:10
DX: R33.9 Retention of urine, unspecified (principal); N17.9 Acute kidney failure, unspecified; Z87.440 Personal history of urinary (tract) infections; Z79.899 Other long term (current) drug therapy

== ENCOUNTER → 2023-08-07 | Outpatient (CLI) | payer MEDICARE, OTHER | LOC: M PLAIMG 08:34 | PROVIDERS: ATTEND Internal Medicine Pulmonary Disease | DX: R91.8 Other nonspecific abnormal finding of lung field (principal) ==

== ENCOUNTER 2023-08-25 19:33 | Emergency (ER) | payer MEDICARE, OTHER ==
[~2023-08-25] VITALS: Ht 193 cm; Wt 74.5 kg
[2023-08-25] MEDS ORDERED: CEFUROXIME 500 MG TAB PO ONE (22:10)
[2023-08-25] MEDS ORDERED: CEFU50TA PO (22:12)
[2023-08-25 22:26] VITALS: BP 143/74; TEMP 98.4; O2SAT 98
== END 2023-08-25 22:33 | disposition home or self-care (01) ==
LOC: M ED 19:33
DX: T83.091A Other mechanical complication of indwelling urethral catheter, initial encounter (principal); N39.0 Urinary tract infection, site not specified; N40.1 Benign prostatic hyperplasia with lower urinary tract symptoms; K21.9 Gastro-esophageal reflux disease without esophagitis; Z87.891 Personal history of nicotine dependence; Z79.899 Other long term (current) drug therapy

== ENCOUNTER → 2024-01-22 | Outpatient (CLI) | payer MEDICARE, OTHER ==
[~2024-01-22] MED LIST changes: +CEFD1CAP9 PO; -CEFD300C42 PO; +CEFU50TA PO
== END ==
LOC: M PLAIMG 09:15
PROVIDERS: ATTEND Internal Medicine Pulmonary Disease
DX: R91.8 Other nonspecific abnormal finding of lung field (principal)

== ENCOUNTER → 2024-11-11 | Outpatient (CLI) | payer MEDICARE, OTHER ==
[~2024-11-11] MED LIST changes: +DOXY-441 PO; +INCR1INH PO
== END ==
LOC: M WUC 08:20
PROVIDERS: ATTEND Student in an Organized Health Care Education/Training Program
DX: R06.02 Shortness of breath (principal)

== ENCOUNTER 2024-11-14 07:16 | Inpatient (IN) | payer MEDICARE, OTHER ==
[~2024-11-14] VITALS: Ht 193 cm; Wt 80.5 kg
[~2024-11-14 07:16] MED LIST changes: -DOXY-441 PO; -INCR1INH PO
[2024-11-14] MEDS: IPRATROPIUM 0.5MG/ALBUTEROL 2.5MG INH SOL UD 3ML (DUONEB) NEB PRN ×2 (07:29→16:17)
[2024-11-14] MEDS: CEFEPIME HCL 2 GM in DEXTROSE 5% (D5W) ADV/MINI-BAG 50 ML IV ONE (07:42)
[2024-11-14 07:50] LABS: ABG BASE EXCESS 1.4 (-2.0-2.0); ABG HCO3 27.7 MMOL/L (22.0-26.0); ABG O2 SATURATION 95.2 % (95.0-99.0); ABG PARTIAL PRESSURE CO2 50.9 mmHg (35.0-45.0); ABG PARTIAL PRESSURE O2 82.7 mmHg (75.0-100.0); ABG STANDARD HCO3 25.6 MMOL/L. (22.0-26.0); ABG TOTAL CO2 29.2 MMOL/L (23.0-31.0); ABG pH (ARTERIAL) 7.353 UNITS (7.350-7.450)
[2024-11-14 07:58] LABS: BASO % 0.1 % (0.0-1.0); HEMATOCRIT 41.8 % (42.0-52.0); HEMOGLOBIN 12.6 g/dl (13.5-17.5); LYMPH # 0.9 10^3/uL (1.5-5.0); LYMPH % 6.6 % (24.0-44.0); MEAN CORPUSCULAR HGB CONC 30.1 g/dl (32.0-36.5); MEAN CORPUSCULAR VOLUME 89.7 fl (80.0-96.0); MONO # 1.6 10^3/uL (0.0-0.8); MONO % 12.5 % (2.0-8.0); NEUTROPHILS # 10.3 10^3/uL (1.5-8.5); NEUTROPHILS % 80.3 % (36.0-66.0); PLATELET COUNT, AUTOMATED 285 10^3/uL (150-450); RED BLOOD COUNT 4.66 10^6/uL (4.30-6.10); WHITE BLOOD COUNT 12.8 10^3/uL (4.0-10.0)
[2024-11-14 08:30] LABS: ALBUMIN 2.6 G/DL (3.2-5.2); ALKALINE PHOSPHATASE 140 U/L (40-129); ALT/SGPT 44 U/L (7.0-40); AST/SGOT 20 U/L (<34); BILIRUBIN,DIRECT 0.3 MG/DL (<0.4); BILIRUBIN,TOTAL 0.8 MG/DL (0.3-1.2); BLOOD UREA NITROGEN 37 MG/DL (9-23); CARBON DIOXIDE LEVEL 29 MMOL/L (20-31); CHLORIDE LEVEL 108 MMOL/L (98-107); GLOMERULAR FILTRATION RATE > 60.0 (>42); GLUCOSE, FASTING 102 MG/DL (74-106); POTASSIUM SERUM 4.5 MMOL/L (3.5-5.1); SODIUM LEVEL 145 MMOL/L (136-145); TOTAL PROTEIN 5.8 G/DL (5.7-8.2)
[2024-11-14] MEDS ORDERED: ISOVUE-370 76% 100ML VIAL As Ordered ONE (08:50)
[2024-11-14 08:52] LABS: PROCALCITONIN 0.34 ng/ml
[2024-11-14] MEDS: OSELTAMIVIR PHOSPHATE 75 MG CAP PO ONE (09:34)
[2024-11-14] MEDS ORDERED: FLOM0.4C39 PO (10:55)
[2024-11-14] MEDS ORDERED: DOXY-441 PO (10:59)
[2024-11-14] MEDS ORDERED: PRED10TA2 PO (10:59)
[2024-11-14] MEDS ORDERED: INCR1INH PO (10:59)
[2024-11-14] MEDS ORDERED: HOME MED LIST COMPLETE! XX SCH (11:00)
[2024-11-14] MEDS ORDERED: CEFEPIME HCL 1 GM in D5W 50 ML IV SCH (13:40)
[2024-11-14] MEDS ORDERED: MAG SULF 1GM/100ML (MAG RUN) 1 GM in IV 1 EA IV ONE (13:45)
[2024-11-14] MEDS: IPRATROPIUM 0.5MG/ALBUTEROL 2.5MG INH SOL UD 3ML (DUONEB) NEB SCH (13:49)
[2024-11-14] MEDS: IPRATROPIUM 0.5MG/ALBUTEROL 2.5MG INH SOL UD 3ML (DUONEB) NEB ONE (13:51)
[2024-11-14] MEDS ORDERED: methylPREDNISolone 40MG 1ML VIAL IV SCH (14:00)
[2024-11-14] MEDS: methylPREDNISolone 125MG 2ML VIAL IV ONE (14:08)
[2024-11-14] MEDS: PANTOPRAZOLE 40MG VIAL IV SCH (14:08)
[2024-11-14] MEDS: MAG SULF 1GM/100ML (MAG RUN) 1 GM in IV 1 EA IV SCH (15:08)
[2024-11-14] MEDS: CEFEPIME HCL 2 GM in DEXTROSE 5% (D5W) ADV/MINI-BAG 50 ML IV SCH (16:00)
[2024-11-14] MEDS: SYMBICORT 160/4.5MCG INHALER 6GM INH SCH (19:23)
[2024-11-14] MEDS: OSELTAMIVIR PHOSPHATE 75 MG CAP PO SCH (21:36)
[2024-11-14] MEDS: methylPREDNISolone 40MG 1ML VIAL IV SCH (21:37)
[2024-11-14] MEDS: DOXYCYCLINE HYCLATE 100 MG in DEXTROSE 5% (D5W) MINI-BAG PLU 100 ML IV SCH (21:40)
[2024-11-15] VITALS (21 sets, daily range): BP systolic 126–142; BP diastolic 63–79; TEMP 97.9–98.8; O2SAT 84–99
[2024-11-15 05:40] LABS: HEMATOCRIT 35.6 % (42.0-52.0); MEAN CORPUSCULAR HGB CONC 30.9 g/dl (32.0-36.5); MEAN CORPUSCULAR VOLUME 90.6 fl (80.0-96.0); PLATELET COUNT, AUTOMATED 262 10^3/uL (150-450); RED BLOOD COUNT 3.93 10^6/uL (4.30-6.10); WHITE BLOOD COUNT 15.5 10^3/uL (4.0-10.0)
[2024-11-15 06:05] LABS: BLOOD UREA NITROGEN 29 MG/DL (9-23); CALCIUM LEVEL 8.6 MG/DL (8.3-10.6); CARBON DIOXIDE LEVEL 31 MMOL/L (20-31); CHLORIDE LEVEL 102 MMOL/L (98-107); CREATININE FOR GFR 0.96 MG/DL (0.70-1.30); GLOMERULAR FILTRATION RATE > 60.0 (>42); GLUCOSE, FASTING 131 MG/DL (74-106); MAGNESIUM LEVEL 2.2 MG/DL (1.8-2.4); POTASSIUM SERUM 4.4 MMOL/L (3.5-5.1); SODIUM LEVEL 142 MMOL/L (136-145)
[2024-11-15] MEDS: MONTELUKAST 10 MG TAB PO SCH (09:31)
[2024-11-15] MEDS: TAMSULOSIN 0.4 MG CAP PO SCH (11:13)
[2024-11-15] MEDS: DOXYCYCLINE HYCLATE 100MG TABLET PO SCH (22:44)
[2024-11-16] VITALS (25 sets, daily range): BP systolic 127–137; BP diastolic 57–65; TEMP 97.9–98.9; O2SAT 85–96
[2024-11-16] MEDS: predniSONE 20 MG TAB PO SCH (08:48)
[2024-11-16] MEDS: ACETAMINOPHEN 325 MG TAB PO PRN (15:39)
[2024-11-17] VITALS (30 sets, daily range): BP systolic 124–142; BP diastolic 59–71; TEMP 97.7–99.9; O2SAT 88–98
[2024-11-17 09:27] LABS: BASO % 0.1 % (0.0-1.0); EOS % 0.1 % (0.0-3.0); HEMATOCRIT 38.2 % (42.0-52.0); HEMOGLOBIN 11.8 g/dl (13.5-17.5); LYMPH # 1.2 10^3/uL (1.5-5.0); LYMPH % 7.8 % (24.0-44.0); MEAN CORPUSCULAR HGB CONC 30.9 g/dl (32.0-36.5); MEAN CORPUSCULAR VOLUME 90.5 fl (80.0-96.0); MONO # 1.4 10^3/uL (0.0-0.8); NEUTROPHILS # 12.8 10^3/uL (1.5-8.5); PLATELET COUNT, AUTOMATED 299 10^3/uL (150-450); RED BLOOD COUNT 4.22 10^6/uL (4.30-6.10); WHITE BLOOD COUNT 15.6 10^3/uL (4.0-10.0)
[2024-11-17 10:28] LABS: ALBUMIN 2.2 G/DL (3.2-5.2); ALKALINE PHOSPHATASE 114 U/L (40-129); ALT/SGPT 43 U/L (7.0-40); AST/SGOT 15 U/L (<34); BILIRUBIN,TOTAL 0.4 MG/DL (0.3-1.2); BLOOD UREA NITROGEN 45 MG/DL (9-23); CALCIUM LEVEL 9.2 MG/DL (8.3-10.6); CARBON DIOXIDE LEVEL 34 MMOL/L (20-31); CHLORIDE LEVEL 102 MMOL/L (98-107); CREATININE FOR GFR 1.13 MG/DL (0.70-1.30); GLOMERULAR FILTRATION RATE > 60.0 (>42); GLUCOSE, FASTING 105 MG/DL (74-106); POTASSIUM SERUM 4.5 MMOL/L (3.5-5.1); SODIUM LEVEL 141 MMOL/L (136-145); TOTAL PROTEIN 5.5 G/DL (5.7-8.2)
[2024-11-17] MEDS: GLYCOPYRROLATE INJ 0.2 MG/ML 2 ML VIAL NEB SCH (20:27)
[2024-11-17] MEDS: FORMOTEROL FUMARATE 20 MCG/2 ML INHALATION SOLUTION (PERFOROMIST) INH SCH (20:27)
[2024-11-18] VITALS (28 sets, daily range): BP systolic 126–159; BP diastolic 59–74; TEMP 97–99.7; O2SAT 78–100
[2024-11-18] MEDS: ALBUTEROL 90 MCG/ACT 8GM HFA INHALER INH PRN (16:49)
[2024-11-19] VITALS (11 sets, daily range): BP systolic 126–144; BP diastolic 59–79; TEMP 97.6–98.6; O2SAT 90–97
[2024-11-19 08:42] LABS: BASO % 0.2 % (0.0-1.0); EOS # 0.1 10^3/uL (0.0-0.5); EOS % 0.4 % (0.0-3.0); HEMATOCRIT 43.2 % (42.0-52.0); HEMOGLOBIN 13.2 g/dl (13.5-17.5); LYMPH # 1.6 10^3/uL (1.5-5.0); LYMPH % 10.1 % (24.0-44.0); MEAN CORPUSCULAR HEMOGLOBIN 27.4 pg (27.0-33.0); MEAN CORPUSCULAR HGB CONC 30.6 g/dl (32.0-36.5); MEAN CORPUSCULAR VOLUME 89.8 fl (80.0-96.0); MONO # 1.7 10^3/uL (0.0-0.8); MONO % 10.7 % (2.0-8.0); NEUTROPHILS # 12.2 10^3/uL (1.5-8.5); NEUTROPHILS % 76.1 % (36.0-66.0); PLATELET COUNT, AUTOMATED 407 10^3/uL (150-450); RED BLOOD COUNT 4.81 10^6/uL (4.30-6.10)
[2024-11-19 09:07] LABS: BLOOD UREA NITROGEN 39 MG/DL (9-23); CALCIUM LEVEL 9.2 MG/DL (8.3-10.6); CARBON DIOXIDE LEVEL 35 MMOL/L (20-31); CHLORIDE LEVEL 98 MMOL/L (98-107); CREATININE FOR GFR 0.98 MG/DL (0.70-1.30); GLOMERULAR FILTRATION RATE > 60.0 (>42); GLUCOSE, FASTING 99 MG/DL (74-106); POTASSIUM SERUM 5.2 MMOL/L (3.5-5.1); SODIUM LEVEL 137 MMOL/L (136-145)
[2024-11-19 09:17] LABS: CLOSTRIDIUM DIFFICILE PCR NEGATIVE (NEGATIVE)
[2024-11-19 10:57] LABS: PROCALCITONIN 0.24 ng/ml
[2024-11-19] MEDS: PATIROMER SORBITEX CALCIUM 8.4 GM POWDER PACKET (VELTASSA) PO ONE (12:30)
[2024-11-19] MEDS ORDERED: PINK BISMUTH SUSP 524MG/30ML ORAL SYRINGE PO PRN (12:40)
[2024-11-19] MEDS: LACTOBACILLUS ACIDOPHILUS CAP (BACID) PO SCH (17:07)
[2024-11-20] VITALS (24 sets, daily range): BP systolic 128–158; BP diastolic 60–74; TEMP 97–98.6; O2SAT 90–100
[2024-11-20] MEDS: ENOXAPARIN 40MG/0.4ML SYRINGE (J1650 PER 10MG) SC SCH (09:01)
[2024-11-20 09:36] LABS: HEMATOCRIT 40.5 % (42.0-52.0); HEMOGLOBIN 12.4 g/dl (13.5-17.5); MEAN CORPUSCULAR HEMOGLOBIN 27.6 pg (27.0-33.0); MEAN CORPUSCULAR HGB CONC 30.6 g/dl (32.0-36.5); MEAN CORPUSCULAR VOLUME 90.2 fl (80.0-96.0); PLATELET COUNT, AUTOMATED 334 10^3/uL (150-450); RED BLOOD COUNT 4.49 10^6/uL (4.30-6.10); WHITE BLOOD COUNT 14.4 10^3/uL (4.0-10.0)
[2024-11-20 09:57] LABS: BLOOD UREA NITROGEN 39 MG/DL (9-23); CALCIUM LEVEL 8.7 MG/DL (8.3-10.6); CARBON DIOXIDE LEVEL 38 MMOL/L (20-31); CHLORIDE LEVEL 95 MMOL/L (98-107); CREATININE FOR GFR 0.99 MG/DL (0.70-1.30); GLOMERULAR FILTRATION RATE > 60.0 (>42); GLUCOSE, FASTING 83 MG/DL (74-106); POTASSIUM SERUM 4.9 MMOL/L (3.5-5.1); SODIUM LEVEL 139 MMOL/L (136-145)
[2024-11-20] MEDS: DOXYCYCLINE HYCLATE 100MG TABLET PO SCH (12:12)
[2024-11-20] MEDS: CEFDINIR 300 MG CAP (OMNICEF) PO SCH (12:12)
[2024-11-21] VITALS (10 sets, daily range): BP systolic 116–138; BP diastolic 59–63; TEMP 98–98.3; O2SAT 91–99
[2024-11-21] MEDS: predniSONE 10MG TAB PO SCH (09:07)
[2024-11-21] MEDS: ALPRAZolam 0.5 MG TAB PO ONE (09:11)
[2024-11-21 10:44] LABS: HEMATOCRIT 40.3 % (42.0-52.0); HEMOGLOBIN 12.8 g/dl (13.5-17.5); MEAN CORPUSCULAR HEMOGLOBIN 28.6 pg (27.0-33.0); MEAN CORPUSCULAR HGB CONC 31.8 g/dl (32.0-36.5); MEAN CORPUSCULAR VOLUME 90.2 fl (80.0-96.0); PLATELET COUNT, AUTOMATED 315 10^3/uL (150-450); RED BLOOD COUNT 4.47 10^6/uL (4.30-6.10); WHITE BLOOD COUNT 16.5 10^3/uL (4.0-10.0)
[2024-11-21] MEDS ORDERED: ALPRAZolam 0.5 MG TAB PO PRN (10:45)
[2024-11-21 10:54] LABS: ERYTHROCYTE SEDIMENTATION RATE 36 mm/hr (0-20)
[2024-11-21 11:14] LABS: BLOOD UREA NITROGEN 36 MG/DL (9-23); CALCIUM LEVEL 8.9 MG/DL (8.3-10.6); CARBON DIOXIDE LEVEL 38 MMOL/L (20-31); CHLORIDE LEVEL 97 MMOL/L (98-107); CREATININE FOR GFR 0.95 MG/DL (0.70-1.30); GLOMERULAR FILTRATION RATE > 60.0 (>42); GLUCOSE, FASTING 106 MG/DL (74-106); POTASSIUM SERUM 4.7 MMOL/L (3.5-5.1); SODIUM LEVEL 140 MMOL/L (136-145)
[2024-11-21 11:21] LABS: PROCALCITONIN 0.17 ng/ml
[2024-11-21] MEDS ORDERED: ALPRAZolam 0.25 MG TAB PO PRN (11:40)
[2024-11-21] MEDS ORDERED: ALPR0.25 PO (14:59)
[2024-11-21] MEDS ORDERED: DOXY100T PO (14:59)
[2024-11-21] MEDS ORDERED: PRED10TA2 PO (14:59)
[2024-11-21] MEDS ORDERED: CEFD300CAP PO (14:59)
[2024-11-21] MEDS ORDERED: GLYC5INJ NEB (14:59)
[2024-12-01] MEDS ORDERED: predniSONE 10MG TAB PO SCH (09:00)
== END 2024-11-21 16:45 | DRG 193 ==
LOC: M ED 07:16 → EDBD 07:16 → M ED INP 13:44 → M PCU 11-15 01:21
PROVIDERS: ADMIT Student in an Organized Health Care Education/Training Program; ATTEND Student in an Organized Health Care Education/Training Program
DX: J10.00 Influenza due to other identified influenza virus with unspecified type of pneumonia (principal); J96.01 Acute respiratory failure with hypoxia; J44.1 Chronic obstructive pulmonary disease with (acute) exacerbation; J44.0 Chronic obstructive pulmonary disease with (acute) lower respiratory infection; J45.901 Unspecified asthma with (acute) exacerbation; J18.9 Pneumonia, unspecified organism; E78.00 Pure hypercholesterolemia, unspecified; I73.9 Peripheral vascular disease, unspecified; M54.50 Low back pain, unspecified; E87.5 Hyperkalemia; Z79.2 Long term (current) use of antibiotics; Z79.52 Long term (current) use of systemic steroids; Z79.899 Other long term (current) drug therapy; Z98.41 Cataract extraction status, right eye; Z98.42 Cataract extraction status, left eye; R19.7 Diarrhea, unspecified; T36.95XA Adverse effect of unspecified systemic antibiotic, initial encounter

== ENCOUNTER 2024-11-21 15:30 | Inpatient (IN) | payer MEDICARE, OTHER ==
[~2024-11-21] VITALS: Ht 193 cm; Wt 57.4 kg
[~2024-11-21 15:30] MED LIST changes: +ALPR0.25 PO; +CEFD300CAP PO; +DOXY-441 PO; +DOXY100T PO; +GLYC5INJ NEB; +INCR1INH PO
[2024-11-21 16:55] VITALS: BP 128/59; TEMP 98.2; O2SAT 90
[2024-11-21] MEDS ORDERED: MAALOX 30 ML SUSP *UDC PO PRN (17:00)
[2024-11-21] MEDS ORDERED: MOM 30ML SUSPENSION UDC PO PRN (17:00)
[2024-11-21] MEDS ORDERED: BISACODYL 5MG TAB PO PRN (17:00)
[2024-11-21] MEDS ORDERED: ONDANSETRON 4MG ORAL DISINTEGRATING TAB SL PRN (17:00)
[2024-11-21] MEDS ORDERED: SIMETHICONE 80MG CHEW TAB PO PRN (17:00)
[2024-11-21] MEDS ORDERED: BISACODYL 10MG SUPP PR PRN (17:00)
[2024-11-21] MEDS: IPRATROPIUM 0.5MG/ALBUTEROL 2.5MG INH SOL UD 3ML (DUONEB) INH PRN (19:28)
[2024-11-21] MEDS: GLYCOPYRROLATE INJ 0.2 MG/ML 2 ML VIAL NEB SCH (19:29)
[2024-11-21] MEDS: SYMBICORT 160/4.5MCG INHALER 6GM INH SCH (19:32)
[2024-11-21] MEDS: LACTOBACILLUS ACIDOPHILUS CAP (BACID) PO SCH (19:33)
[2024-11-21 20:00] VITALS: BP 116/55; TEMP 97.7; O2SAT 92
[2024-11-21] MEDS: traZODone 50 MG TAB PO SCH (20:48)
[2024-11-21] MEDS: busPIRone 5 MG TAB PO SCH (20:48)
[2024-11-21] MEDS: DOXYCYCLINE HYCLATE 100MG TABLET PO SCH (20:48)
[2024-11-21] MEDS: CEFDINIR 300 MG CAP (OMNICEF) PO SCH (20:48)
[2024-11-21] MEDS: SENNA 8.6 MG TAB (SENOKOT) PO SCH (20:48)
[2024-11-22 04:00] VITALS: BP 115/60; TEMP 97.9; O2SAT 89
[2024-11-22 06:27] LABS: BASO % 0.1 % (0.0-1.0); EOS # 0.1 10^3/uL (0.0-0.5); EOS % 0.3 % (0.0-3.0); HEMATOCRIT 40.8 % (42.0-52.0); HEMOGLOBIN 12.5 g/dl (13.5-17.5); LYMPH # 1.9 10^3/uL (1.5-5.0); LYMPH % 11.9 % (24.0-44.0); MEAN CORPUSCULAR HEMOGLOBIN 27.7 pg (27.0-33.0); MEAN CORPUSCULAR HGB CONC 30.6 g/dl (32.0-36.5); MEAN CORPUSCULAR VOLUME 90.5 fl (80.0-96.0); MONO # 1.7 10^3/uL (0.0-0.8); MONO % 10.9 % (2.0-8.0); NEUTROPHILS % 75.4 % (36.0-66.0); PLATELET COUNT, AUTOMATED 307 10^3/uL (150-450); RED BLOOD COUNT 4.51 10^6/uL (4.30-6.10); WHITE BLOOD COUNT 15.9 10^3/uL (4.0-10.0)
[2024-11-22 06:52] LABS: ALBUMIN 2.3 G/DL (3.2-5.2); ALKALINE PHOSPHATASE 105 U/L (40-129); ALT/SGPT 33 U/L (7.0-40); AST/SGOT 12 U/L (<34); BILIRUBIN,TOTAL 0.5 MG/DL (0.3-1.2); BLOOD UREA NITROGEN 37 MG/DL (9-23); CALCIUM LEVEL 8.9 MG/DL (8.3-10.6); CARBON DIOXIDE LEVEL 38 MMOL/L (20-31); CHLORIDE LEVEL 96 MMOL/L (98-107); CREATININE FOR GFR 0.99 MG/DL (0.70-1.30); GLOMERULAR FILTRATION RATE > 60.0 (>42); GLUCOSE, FASTING 84 MG/DL (74-106); POTASSIUM SERUM 4.8 MMOL/L (3.5-5.1); SODIUM LEVEL 140 MMOL/L (136-145); TOTAL PROTEIN 5.2 G/DL (5.7-8.2)
[2024-11-22] MEDS: ENOXAPARIN 40MG/0.4ML SYRINGE (J1650 PER 10MG) SC SCH (07:42)
[2024-11-22] MEDS: MONTELUKAST 10 MG TAB PO SCH (07:42)
[2024-11-22] MEDS: ACETAMINOPHEN 325 MG TAB PO PRN (07:43)
[2024-11-22] MEDS: TAMSULOSIN 0.4 MG CAP PO SCH (07:44)
[2024-11-22] MEDS: predniSONE 10MG TAB PO SCH (07:45)
[2024-11-22 12:26] VITALS: BP 110/60; TEMP 97.6; O2SAT 88
[2024-11-22] MEDS: ALBUTEROL 90 MCG/ACT 8GM HFA INHALER INH PRN (14:26)
[2024-11-22 17:39] VITALS: O2SAT 94
[2024-11-22 19:28] VITALS: BP 160/86; TEMP 97.2; O2SAT 91
[2024-11-22 20:20] VITALS: BP 116/64
[2024-11-23 03:54] VITALS: BP 121/62; TEMP 97.5; O2SAT 95
[2024-11-23 12:00] VITALS: BP 115/63; TEMP 98.3; O2SAT 95
[2024-11-23 20:07] VITALS: BP 119/57; TEMP 99.3; O2SAT 93
[2024-11-23] MEDS: ALPRAZolam 0.25 MG TAB PO PRN (20:13)
[2024-11-24 04:00] VITALS: BP 117/68; TEMP 97.4; O2SAT 94
[2024-11-24 06:48] LABS: HEMATOCRIT 40.7 % (42.0-52.0); HEMOGLOBIN 12.2 g/dl (13.5-17.5); MEAN CORPUSCULAR HEMOGLOBIN 27.3 pg (27.0-33.0); MEAN CORPUSCULAR VOLUME 91.1 fl (80.0-96.0); PLATELET COUNT, AUTOMATED 261 10^3/uL (150-450); RED BLOOD COUNT 4.47 10^6/uL (4.30-6.10); WHITE BLOOD COUNT 10.2 10^3/uL (4.0-10.0)
[2024-11-24 12:00] VITALS: BP 116/64; TEMP 97.3; O2SAT 95
[2024-11-24 20:33] VITALS: BP 117/65; TEMP 98.3; O2SAT 95
[2024-11-25 04:51] VITALS: BP 127/60; TEMP 98; O2SAT 98
[2024-11-25 12:00] VITALS: BP 106/62; TEMP 97.8; O2SAT 94
[2024-11-25] MEDS: busPIRone 5 MG TAB PO SCH (12:05)
[2024-11-25 20:12] VITALS: BP 116/60; TEMP 98.2; O2SAT 94
[2024-11-26 04:00] VITALS: BP_SYST 130; BP_SYST 132; BP_DIAS 59; BP_DIAS 83; TEMP 97.9; TEMP 98.2; O2SAT 94; O2SAT 97
[2024-11-26] MEDS: predniSONE 20 MG TAB PO SCH (07:42)
[2024-11-26 12:00] VITALS: BP 112/56; TEMP 98.2; O2SAT 96
[2024-11-26] MEDS: SODIUM CHLORIDE 0.9% 3ML NEB SOLUTION FOR INHALATION INH SCH (14:48)
[2024-11-26 15:20] VITALS: O2SAT 92
[2024-11-26 20:03] VITALS: BP 123/59; TEMP 98.2; O2SAT 94
[2024-11-27 04:15] VITALS: BP 115/57; TEMP 97.7; O2SAT 92
[2024-11-27 06:55] LABS: HEMATOCRIT 34.7 % (42.0-52.0); HEMOGLOBIN 10.6 g/dl (13.5-17.5); MEAN CORPUSCULAR HEMOGLOBIN 28.2 pg (27.0-33.0); MEAN CORPUSCULAR HGB CONC 30.5 g/dl (32.0-36.5); MEAN CORPUSCULAR VOLUME 92.3 fl (80.0-96.0); PLATELET COUNT, AUTOMATED 223 10^3/uL (150-450); RED BLOOD COUNT 3.76 10^6/uL (4.30-6.10); WHITE BLOOD COUNT 10.9 10^3/uL (4.0-10.0)
[2024-11-27 12:00] VITALS: BP 120/59; TEMP 97.1; O2SAT 95
[2024-11-27] MEDS: guaiFENesin ER TABLET 600 MG TAB PO ONE (12:19)
[2024-11-27] MEDS ORDERED: ALPR0.25 PO (15:05)
[2024-11-27] MEDS ORDERED: TRAZ-252 PO (15:05)
[2024-11-27] MEDS ORDERED: MUCI600T31 PO (15:05)
[2024-11-27] MEDS ORDERED: GLYC5INJ NEB (15:05)
[2024-11-27] MEDS ORDERED: PRED10TA2 PO (15:05)
[2024-11-27] MEDS ORDERED: BUSP5TA PO (15:05)
[2024-11-27] MEDS ORDERED: AMOX875T2 PO (15:05)
[2024-11-27 20:00] VITALS: BP 101/65; TEMP 97; O2SAT 93
[2024-11-28 04:00] VITALS: BP 112/54; TEMP 98.2; O2SAT 93
[2024-11-28] MEDS: guaiFENesin ER TABLET 600 MG TAB PO SCH (08:32)
[2024-11-28 12:00] VITALS: BP 112/58; TEMP 97.5; O2SAT 93
[2024-11-28 19:50] VITALS: BP 104/58; TEMP 97.7; O2SAT 94
[2024-11-29 04:00] VITALS: BP 108/59; TEMP 97.6; O2SAT 93
[2024-12-01] MEDS ORDERED: predniSONE 10MG TAB PO SCH (09:00)
== END 2024-11-29 10:05 | disposition home health service (06) | DRG 190 ==
LOC: M PM&R 16:55
PROVIDERS: ADMIT Physical Medicine & Rehabilitation; ATTEND Physical Medicine & Rehabilitation
DX: J44.1 Chronic obstructive pulmonary disease with (acute) exacerbation (principal); J18.9 Pneumonia, unspecified organism; J45.901 Unspecified asthma with (acute) exacerbation; J44.0 Chronic obstructive pulmonary disease with (acute) lower respiratory infection; N40.0 Benign prostatic hyperplasia without lower urinary tract symptoms; M54.10 Radiculopathy, site unspecified; E78.00 Pure hypercholesterolemia, unspecified; I73.9 Peripheral vascular disease, unspecified; Z74.1 Need for assistance with personal care; Z74.09 Other reduced mobility; E87.5 Hyperkalemia; F41.9 Anxiety disorder, unspecified; G47.00 Insomnia, unspecified; Z79.2 Long term (current) use of antibiotics; Z79.52 Long term (current) use of systemic steroids; Z79.51 Long term (current) use of inhaled steroids; Z79.899 Other long term (current) drug therapy; Z87.891 Personal history of nicotine dependence

== ENCOUNTER → 2025-01-06 | Outpatient (CLI) | payer MEDICARE, OTHER ==
[~2025-01-06] MED LIST changes: +AMOX875T2 PO; +BUSP5TA PO; +MUCI600T31 PO; +TRAZ-252 PO
[2025-01-06 15:05] LABS: HEMATOCRIT 36.1 % (42.0-52.0); HEMOGLOBIN 10.9 g/dl (13.5-17.5); MEAN CORPUSCULAR HEMOGLOBIN 28.1 pg (27.0-33.0); MEAN CORPUSCULAR HGB CONC 30.2 g/dl (32.0-36.5); PLATELET COUNT, AUTOMATED 247 10^3/uL (150-450); RED BLOOD COUNT 3.88 10^6/uL (4.30-6.10); WHITE BLOOD COUNT 9.7 10^3/uL (4.0-10.0)
[2025-01-06 15:09] LABS: BLOOD UREA NITROGEN 21 MG/DL (9-23); CALCIUM LEVEL 8.4 MG/DL (8.3-10.6); CARBON DIOXIDE LEVEL 34 MMOL/L (20-31); CHLORIDE LEVEL 105 MMOL/L (98-107); CREATININE FOR GFR 0.93 MG/DL (0.70-1.30); GLOMERULAR FILTRATION RATE > 60.0 (>42); GLUCOSE, FASTING 136 MG/DL (74-106); POTASSIUM SERUM 4.8 MMOL/L (3.5-5.1); SODIUM LEVEL 143 MMOL/L (136-145)
== END ==
LOC: M WUC 11:45
PROVIDERS: ATTEND Registered Nurse
DX: R06.02 Shortness of breath (principal)